=== PATIENT | male | born 1955 | race Caucasian/White ===

== ENCOUNTER 2019-11-21 19:06 | Inpatient (IN) | payer OTHER ==
[~2019-11-21] VITALS: Ht 177.8 cm; Wt 111.1 kg
[~2019-11-21 19:06] MED LIST: HYDROCHLOROTH12.5 M1 PO; LISINOPRIL10 MG PO; PERCOCET 5-3251 EACH PO; VALIUM5 MG PO
--- NOTE | 2019-11-22 00:26 | NUR ---
ADMIT THIS 64 YR OLD MALE TO CCU [facility] ED. ABLE TO MOVE SELF FROM STRETCHER TO BED WITHOUT SOB. DOES PREFER HOB ELEVATED. HAD [address] BROUGHT IN CPAP FROM HOME AND SET UP PER RT. NOW HAS CPAP IN PLACE WITH 02 BLED IN. SATS LOW 90'S. WAS ABLE TO TAKE WATER WITHOUT PROBLEM. HEPARIN GTT STARTED AT 2335 AT 1600 UNIT/HR. GIVEN CALL LIGHT AND INSTRUCTED NOT TO GET UP WITHOUT CALLING. NOTED TO HAVE DARKENING OF SKIN ON LOWER LEGS. PT STATES DOES OCC HAVE EDEMA, NONE NOTED AT THIS TIME. PT ADVISED THAT SHOULD WEAR COMPRESSION STOCKINGS TO DEC VENOUS STASIS AND HELP PREVENT DVT. PRESENT FOR THIS CONVERSATION.
--- NOTE | 2019-11-22 02:23 | NUR ---
SLEEPING WITH CPAP IN PLACE. NO CHANGE.
--- NOTE | 2019-11-22 04:05 | NUR ---
PT AWAKENED AND NOTED LINENS WERE WET. PT HAD PULLED IV L ARM OUT IN SLEEP. PT STOOD TO VOID AND BIJAL WELL AND LET LINENS CHANGED. GOWN CHANGED. NO SOB. IV RESTARTED L INNER ARM. PT BIJAL WELL. READY TO GO BACK TO SLEEP, CPAP IN PLACE.
--- NOTE | 2019-11-22 05:59 | NUR ---
FAMILY IN ROOM VISITING WITH PT. PT'S NOTED THAT PT'S UPPER LIP IS SLIGHTLY SWOLLEN, ALSO HAS SWELLING AROUND NECK. STATES THAT WHEN PT IS RETAINING FLUID, IE IF MISSES HIS WATER PILL THIS IS WHERE HE GETS EDEMA. HAD NOTED VERY SLIGHT BLUISH TINGE AROUND LIPS WHEN PT FIRST ADMITTED, IS GONE NOW. WHEN TOURNIQUETS APPLIED TO START IV EXREMITY TURNS BLUE ALMOST IMMEDIETELY.
--- NOTE | 2019-11-22 06:20 | NUR ---
PTT 47, PT GIVEN BOLUS OF 5000 UNITS AND INFUSION INCREASED TO 1800 UNITS/HR PER PROTOCOL.
--- NOTE | 2019-11-22 08:12 | NUR ---
PATIENT RESTING IN BED UPON INITIAL ASSESSMENT AND STATES HE NEEDS TO USE THE URINAL. PT STANDS AT BEDSIDE TO VOID. PT DENIES FEELING SHORT OF BREATH. ASSESSMENT COMPLETE. PT REMAINS ON 4 L NC. HEPARIN IS INFUSING AT 1600 UNITS/HR. PATIENT'S IN ROOM AND ATTENTIVE TO PATIENT. PT'S NOTES THAT HE HAS SOME UPPER BODY/NECK/UPPER LIP SWELLING. PT'S VEINS NOTED TO BE PROMINENT ON UPPER ARMS AND ON LEGS. NO EDEMA NOTED. SKIN COLOR PINK AND CAP REFILL BRISK. SP02 IS 97% ON 4L. PT WAITING FOR BREAKFAST. DENIES FURTHER NEEDS.
--- NOTE | 2019-11-22 09:30 | NUR ---
DR. MCCLELLAN IN ROOM TO SEE PATIENT. PLAN OF CARE DISCUSSED.
--- NOTE | 2019-11-22 11:12 | NUR ---
ECHO IN ROOM AT THIS TIME. PT'S ORDERED LUNCH FOR PATIENT. PT REMAINS ON 4 L NC AND TOLERATING WELL. PT DENIES FEELING SHORT OF BREATH.
[2019-11-22] MEDS ORDERED: CHLORTHALIDONE25 MG PO (11:32)
[2019-11-22] MEDS ORDERED: NORVASC10 MG PO (11:32)
--- NOTE | 2019-11-22 11:44 | NUR ---
ECHO DONE AT THIS TIME. PT WAITING FOR HIS LUNCH. CONTINUE TO MONITOR.
[2019-11-22] MEDS ORDERED: ASPIR 8181 MG PO (12:12)
[2019-11-22] MEDS ORDERED: ALLEGRA ALLERG180 MG PO (12:12)
--- NOTE | 2019-11-22 12:12 | NUR ---
MED REC COMPLETE
--- NOTE | 2019-11-22 14:38 | NUR ---
PT RESTING IN BED, O2 NC IN USE. PT SEEMS ALERT AND ORIENTED, AND SEEMED PLEASED I STOPPED BY. PT STATED THAT HE FEELS INFORMED TO THIS POINT AND IS FEELING BETTER THIS AFTERNOON. GAVE BLESSING, WILL FOLLOW NEEDED
--- NOTE | 2019-11-22 15:00 | NUR ---
Spoke with Endy and his , Freya. They live in a single story home in [place].. He is a [employer]. Denies use of DME, but does use a CPAP. Denies needs at this time. Plans on dc to home when discharged with his . Financially ok.
--- NOTE | 2019-11-22 15:02 | NUR ---
NEW HEPARIN GTT STARTED. PT'S EXPRESSES CONCERNS WITH PATIENT BECOMING MORE REPETITIVE WITH HIS WORDS. DR. MCCLELLAN INFORMED AND IN TO SE EVALUATE PATIENT.
--- NOTE | 2019-11-22 20:10 | EKG ---
[facility] [address] [place], [place] [address] Signed Normal sinus rhythm Left axis deviation Possible Anterior infarct , age undetermined Prolonged QT Abnormal ECG No previous ECGs available Confirmed by DEEPALI MCCLELLAN DO ([id number]) on 11/22/2019 8:10:15 PM Electronically Signed By: DEEPALI MCCLELLAN DO 11/22/192009 PATIENT NAME: BRIANNA VALENCIA III Electrocardiogram DATE OF : 59 PHYSICIAN: DEEPALI MCCLELLAN DO REPORT #: [id number] REPORT IS CONFIDENTIAL AND NOT TO BE RELEASED WITHOUT AUTHORIZATION
--- NOTE | 2019-11-22 20:43 | NUR ---
RESTING IN BED WATCHING TV. STATES FEELING A LITTLE BETTER.
--- NOTE | 2019-11-22 22:54 | NUR ---
SLEEPING WITH CPAP IN PLACE.
--- NOTE | 2019-11-23 00:24 | NUR ---
AWAKENED FOR ASSESSMENT. NO/CO. DENIES NEED TO VOID. READY TO GO BACK TO SLEEP. CPAP IS IN PLACE. SATS 89-100, 02 DECREASED TO 3L BLED INTO CPAP.
--- NOTE | 2019-11-23 02:15 | NUR ---
CONT TO SLEEP WITH CPAP IN PLACE. NO CHANGE.
--- NOTE | 2019-11-23 04:00 | NUR ---
CONT TO SLEEP, NO CHANGE. 02 3L NC BLED INTO CPAP. WILL NOT AWAKEN AT THIS TIME.
--- NOTE | 2019-11-23 05:22 | NUR ---
AWAKE FOR ASSESSMENT. LAB IN TO DRAW BLOOD. NO CHANGE
--- NOTE | 2019-11-23 05:55 | NUR ---
PT AWAKE, TOOK CPAP OFF AND DIDN'T PUT 02 ON. SATS DEC TO 86%. 02 3L NC APPLIED AND SATS BACK TO 95%. DISCUSSED CONT NEED TO 02 AT THIS TIME. WILL TRY TO WEAN BIJAL.
--- NOTE | 2019-11-23 09:01 | NUR ---
PATIENT RESTING IN BED UPON INITIAL ASSESSMENT. PATIENT STATES HE IS FEELING A LITTLE BETTER THAN YESTERDAY. PT STATES HE SLEPT WELL THROUGH THE NIGHT. PATIENT DENIES SHORTNESS OF BREATH TODAY. PT REMAINED ON OXYGEN THROUGH THE NIGHT. SP02 MID TO UPPER 90s ON 3 L NC. TURNED OXYGEN OFF TO SEE HOW PATIENT RESPONDED, AND THUS FAR PATIENT HAS MAINTAINED SP02 >90% WITHOUT ANY CYANOSIS COMPARED TO YESTERDAY MORNING. PT EAGER TO GET UP AND MOVING THIS AM. WILL CONTINUE TO MONITOR.
[2019-11-23] MEDS ORDERED: ELIQUIS5 MG PO (10:24)
--- NOTE | 2019-11-23 11:41 | NUR ---
PATIENT RESTING IN BED AT THIS TIME. PT HAS BEEN UP TO BATHROOM AND HAD A BM. MOSTLY, PATIENT HAS BEEN ON ROOM AIR AND MAINTAINING GREATER THAN 90%. CURRENTLY 93%. PT'S REMAINS IN ROOM. PLAN IS FOR PATIENT TO SHOWER AFTER LUNCH. CONTINUE TO MONITOR.
--- NOTE | 2019-11-23 12:16 | NUR ---
CASE MANAGEMENT AND PHARMACY IN ROOM TO HELP PATIENT WITH DISCHARGE NEEDS WITH PRESCRIPTIONS AND WITH POTENTIAL HOME OXYGEN USE. UNSURE IF PATIENT WILL BE D/C HOME TODAY OR NOT, BUT THIS IS A POTENTIAL. OXYGEN QUALIFICATION PER RT WILL BE ASSESSED TODAY. PT CURRENTLY EATING HIS LUNCH AND SP03 IS 94% ON ROOM AIR CURRENTLY.
--- NOTE | 2019-11-23 12:54 | NUR ---
PATIENT PLACED BACK ON OXYGEN AROUND 1245 DUE TO SP02 HOVERING AT 89-90%. PT ALSO SOMEWHAT ANXIOUS AND FRUSTRATED WITH HOSPITAL SCENARIO. PT'S REMAINS IN ROOM AND ATTENTIVE TO PATIENT. PLAN IS FOR PATIENT TO SHOWER AFTER HIS LUNCH. CONTINUE TO MONITOR.
--- NOTE | 2019-11-23 13:20 | NUR ---
Spoke with pt and his regarding discharge. Updated I have spoken with [facility] medical and they will not pay for his 02 as he has an unmet deductable. The cost of 02 oop $161 per month. and pt state they don't think pt will need 02 at home. He is sating at 89%. Cautioned it is better to have in the home, rather than not. We want a safe discharge and patient to not return to the ER.
--- NOTE | 2019-11-23 13:40 | NUR ---
DR. MCCLELLAN IN ROOM TO SEE PATIENT. PT'S IN ROOM WELL. SP02 IS 94% ON 1 L NC.
--- NOTE | 2019-11-23 14:56 | NUR ---
PATIENT AMBULATES TO SHOWER ROOM WITH RT OFF OF OXYGEN AND MAINTAINED OXYGEN GREATER THAN 90% DURING THIS AMBULATION. PT WILL TRANSFER TO MED FLOOR ROOM 113. REPORT GIVEN TO RAFA STEINER. PT WILL AMBULATE OVER TO ROOM ONCE HE IS DONE WITH HIS SHOWER. CONTINUE TO MONITOR.
--- NOTE | 2019-11-23 15:15 | NUR ---
PATIENT MOVED TO ROOM 113 AT 1515. PT ABLE TO WALK OVER AND TOLERATED WELL. ALL BELONGINGS TAKEN WITH PATIENT.
--- NOTE | 2019-11-23 15:43 | NUR ---
PT TO MEDSURG IS PRESENT WITH HIM. PT UPBEAT AND TALKATIVE. MAINTAINING SATS 90-93% ON RA DENIES SOB AT THIS TIME. ORIENTED TO ROOM CALL LIGHT AND NEEDED ITEMS IN REACH
--- NOTE | 2019-11-23 17:41 | NUR ---
PATIENT SITTING UP IN BED. VISITORS IN ROOM. VITAL SIGNS AND I&O DONE. CALL LIGHT WITHIN REACH. NO OTHER NEEDS AT THIS TIME
--- NOTE | 2019-11-23 18:09 | NUR ---
PT TOLERATES EVENING MEAL WELL. RESETING IN BED, MOTHER IS IN ROOM. PT REQUESTS PAIN MED, IBUPROFEN GIVEN
--- NOTE | 2019-11-23 18:13 | NUR ---
PT CONTINUES ON RA SATS LOW TO MID 90'S. TOLERATES EVENING MEAL, MOOD UPBEAT. REMAINS AT BEDSIDE
--- NOTE | 2019-11-23 19:25 | NUR ---
pt reports slight chest tightness relieved with 1l oxygen placed he said he has felt this before it is not new. bedside report from Gila Noguera RN
--- NOTE | 2019-11-23 21:25 | NUR ---
ROUNDED CHARGE. VITALS TAKEN. INTAKE AND OUPUT RECORDED. AT THE BEDISDE. PATIENT DENIES ANY NEEDS. GERTRUDE FLEMING RN PRESNET IN THE ROOM.
--- NOTE | 2019-11-23 22:04 | NUR ---
PT REPORTS PAIN HAS RESOLVED AT CHEST AREA, HE VERBALIZED HE IS READY TO SET UP HIS CPAP TO GO TO BED.
--- NOTE | 2019-11-24 00:36 | NUR ---
PT RESTING IN BED EYES CLOSED RR EVEN AT 18 BPM ON CPAP WITH 1L BLED IN. PT APPEARS TO BE SLEEPING. NO DISRESS NOTED
--- NOTE | 2019-11-24 04:47 | NUR ---
PT HAD MILD DISCOMFORT AT CHEST 2/10 AT SHIFT CHANGE RESOLVED AFTER TYLENOL GIVEN, PT HAD STEAK FOR DINNER. HE HAS SLEPT WELL OVER SHIFT WITH CPAP IN PLACE WITH 1L OXYGEN BLED IN.
--- NOTE | 2019-11-24 07:29 | NUR ---
0700: Report received from Ibeth CRAIG. Pt resting in his room visiting with his . Call jacinto within reach and he denies any problems or SOB.
--- NOTE | 2019-11-24 09:08 | NUR ---
PT DENIES ANY PAIN OR SOB. SAT ON ROOM AIR IS 93% AND LUNG SOUNDS ARE CLEAR. SEE ASSESSMENT.
== END 2019-11-24 11:10 | disposition home or self-care (01) | DRG 175 ==
LOC: ED 19:06 → CCU 19:07 → ED 19:07 → CCU 19:07 → MS 11-23 15:15
PROVIDERS: ADMIT Student in an Organized Health Care Education/Training Program
DX: I26.99 Other pulmonary embolism without acute cor pulmonale (principal); J96.01 Acute respiratory failure with hypoxia; I51.89 Other ill-defined heart diseases; I10 Essential (primary) hypertension; F17.220 Nicotine dependence, chewing tobacco, uncomplicated; Z79.899 Other long term (current) drug therapy; Z88.5 Allergy status to narcotic agent; Z83.2 Family history of diseases of the blood and blood-forming organs and certain disorders involving the immune mechanism
CPT/HCPCS: 36415; 71045; 71260; 80048; 80053; 83036; 83735; 83880; 84484; 85025; 85379; 85610; 85730; 93005; 93010; 93306; 94761; 94762; 99285-25; J1644; J7121; Q9967

== ENCOUNTER 2020-10-04 06:23 | Day surgery (SDC) | payer OTHER ==
[~2020-10-04] VITALS: Ht 177.8 cm; Wt 111.4 kg
[~2020-10-04 06:23] MED LIST changes: +ALLEGRA ALLERG180 MG PO; +ASPIR 8181 MG PO; +CHLORTHALIDONE25 MG PO; +ELIQUIS5 MG PO; +NORVASC10 MG PO
--- NOTE | 2020-10-04 08:15 | NUR ---
10/04/20 0815 Jessi Narvaez 0858 PT ARRIVED TO PACU ON 3L VIA NC, VSS. PT AWAKE AND TALKING TO RN. PT DENIES PAIN AND NAUSEA. PLAN OF CARE DISCUSSED.
--- NOTE | 2020-10-04 09:06 | OR ---
[facility] [address], [place] [address] Signed DATE OF OPERATION: 10/04/2020 SURGEON: Chantel Henderson MD PREOPERATIVE DIAGNOSES: 1. Father with history of colon cancer, age 70. 2. Internal anal skin tags. POSTOPERATIVE DIAGNOSES: 1. A 3 mm polypoid lesion at 120 cm (transverse colon). 2. External anal skin tags x2. 3. Internal anal skin tag x1. PROCEDURE: Colonoscopy with hot biopsy. ESTIMATED BLOOD LOSS: None. INDICATIONS: Lawrence is a 65-year-old gentleman, asked to see me for a followup colonoscopy. He has had a negative colonoscopy in 2007 and 2013. However, his father developed colon cancer at age 70. Consequently, Lawrence comes every 5 years for colonoscopies. He is known to have perianal skin tags. He also has a little intermittent rectal bleeding. In the office, I gave him a pamphlet on colonoscopies. He recalls the nature of the test quite well. He understands there is risk including, but not limited to gas bloating, crampy abdominal pain, bleeding, perforation requiring surgery, and missed diagnosis. He had expressed understanding and wished to proceed. DESCRIPTION OF PROCEDURE: Lawrence was taken into our endoscopy suite and placed in the left lateral decubitus position. He was given IV sedation with 3 mg of Versed and 100 mcg of fentanyl. A digital rectal exam was performed. He does have two external skin tags. His prostate gland is moderately indurated and enlarged. No dominant nodules. The adult colonoscope was introduced, advanced all around into the cecum under direct visualization of the camera without difficulty. His prep was good. He did have a little bit of liquid particulate stool matter in the left colon that could not quite suction out completely. We had taken pictures throughout for photodocumentation. At 120 cm in the transverse colon, he had a very tiny polypoid appearing lesion, maybe 3 mm or so in diameter. It was easily biopsied and destroyed completely with hot biopsy forceps. No Electronically Signed By: CHANTEL HENDERSON MD 10/04/2006 PATIENT NAME: LAWRENCE VALENCIA III OPERATIVE REPORT DATE OF : 59 REPORT #: [id number] PHYSICIAN: CHANTEL HENDERSON MD PCP: LORNA LEDEZMA MD REPORT IS CONFIDENTIAL AND NOT TO BE RELEASED WITHOUT AUTHORIZATION [facility] [address], [place] [address] Signed diverticulosis. The rectum was unremarkable. Upon retroflexion of scope, he does have at least one internal anal skin tag. After this, the gas was suctioned out and the colonoscope removed. Lawrence tolerated the procedure quite well. RECOMMENDATIONS: I will see Lawrence back in my office in 7 to 14 days to review his results. MD KELSIE Hernandez/RANDOLPHL /[id number] cc: MD Chantel Burris MD Copies: LORNA LEDEZMA MD, ANDREW L MD ~ Electronically Signed By: CHANTEL HENDERSON MD 10/04/20 09 PATIENT NAME: LAWRENCE VALENCIA III OPERATIVE REPORT DATE OF : 59 REPORT #: [id number] PHYSICIAN: CHANTEL HENDERSON MD PCP: LORNA LEDEZMA MD REPORT IS CONFIDENTIAL AND NOT TO BE RELEASED WITHOUT AUTHORIZATION
== END 2020-10-04 08:48 | disposition home or self-care (01) ==
LOC: DS 06:23 → OPS 06:23 → DS 06:45 → OPS 06:45
PROVIDERS: ATTEND Colon & Rectal Surgery
PROC: 0DBL8ZX Excision of Transverse Colon, Via Natural or Artificial Opening Endoscopic, Diagnostic (ICD-10-PCS; principal; 2020-10-04 06:45)
DX: Z12.11 Encounter for screening for malignant neoplasm of colon (principal); D12.3 Benign neoplasm of transverse colon; K64.4 Residual hemorrhoidal skin tags; N40.0 Benign prostatic hyperplasia without lower urinary tract symptoms; I10 Essential (primary) hypertension; N52.9 Male erectile dysfunction, unspecified; G47.30 Sleep apnea, unspecified; E11.42 Type 2 diabetes mellitus with diabetic polyneuropathy; Z80.0 Family history of malignant neoplasm of digestive organs; Z86.711 Personal history of pulmonary embolism; Z79.899 Other long term (current) drug therapy; Z79.01 Long term (current) use of anticoagulants; Z88.5 Allergy status to narcotic agent; Z91.013 Allergy to seafood
CPT/HCPCS: 99153; G0500; J2250; J3010; J7121

== ENCOUNTER 2025-06-22 17:58 | Emergency (ER) | payer MEDICARE, OTHER ==
[~2025-06-22] VITALS: Ht 177.8 cm; Wt 93.8 kg
[2025-06-22] MEDS ORDERED: APIXABAN 5 MG TAB PO ONE (20:00)
[2025-06-22] MEDS ORDERED: ELIQUIS5 MG PO (20:00)
[2025-06-22 20:31] VITALS: BP 147/76
== END 2025-06-22 20:32 | disposition home or self-care (01) ==
LOC: ED 17:58
DX: I82.402 Acute embolism and thrombosis of unspecified deep veins of left lower extremity (principal); I10 Essential (primary) hypertension; Z91.013 Allergy to seafood; Z88.5 Allergy status to narcotic agent; Z79.899 Other long term (current) drug therapy
CPT/HCPCS: 99283